=== PATIENT | female | born 1955 | race Caucasian/White ===

== ENCOUNTER 2016-06-08 17:16 | Emergency (ER) | payer SELFPAY ==
[~2016-06-08] VITALS: Ht 157.5 cm; Wt 93.0 kg
[2016-06-08 17:21] VITALS: BP 145/66
== END 2016-06-08 17:35 | disposition left against medical advice (07) ==
LOC: EME 17:16
DX: R68.89 Other general symptoms and signs (principal); Z53.21 Procedure and treatment not carried out due to patient leaving prior to being seen by health care provider